=== PATIENT | female | born 1980 | race African-American/Black ===

== ENCOUNTER 2016-05-08 00:30 | Emergency (ER) | payer OTHER ==
[~2016-05-08] VITALS: Ht 167.6 cm; Wt 89.4 kg
[~2016-05-08 00:30] MED LIST: AZITHROMYCIN250 MG ORAL; BACTRIM DOUBLE S1 E1 ORAL; BENADRYL25 MG ORAL; BENADRYL50 MG PO; CEPHALEXIN500 MG PO; COUMADIN5 MG ORAL; DILAUDID2 MG ORAL; DILAUDID2 MG PO; FERROUS SULFAT325 MG ORAL; FLOMAX0.4 MG ORAL; FLOMAX0.4 MG PO; GABAPENTIN300 MG PO; GLUCOPHAGE500 MG ORAL; HYDREA500 MG PO; KEFLEX500 MG ORAL; LANTUS SOL100 UNIT/1 SUBQ; LOVENOX10 M3 SUBQ; NEURONTIN300 MG PO; NOVOLOG100 UNIT/3 SUBQ; ONDANSETRON ODT4 MG ORAL; PHENERGAN25 M1 ORAL; ROBITUSSIN DM5 ML PO; XARELTO10 MG ORAL
--- NOTE | 2016-05-08 02:14 | Emergency Room Report ---
History of Present Illness General Chief Complaint: Pain Source: Patient Present Illness HPI Is a 35-year-old female who has a history of sickle cell. She is well-known to me. She presents with chief complaint of sickle cell pain. Pain is diffuse. 10 out of 10. It affected her back and legs. She said that she is out of her Dilaudid. She was seen at [facility] and had rectal prolapse surgery. She said that the doctor only gave her 2 weeks worth of pain medication. Now she is out. Denies any fever chills denies any nausea vomiting. Allergies: Coded Allergies: ASPIRIN (Verified Allergy, Severe, 09/19/15) EGG (Verified Allergy, Severe, Shortness of Breath, 09/19/15) PENICILLINS (Verified Allergy, Severe, RASH, 09/19/15) KETOROLAC TROMETHAMINE (Verified Allergy, Intermediate, Hives, 09/19/15) Uncoded Allergies: fish (Allergy, Unknown, 09/19/15) Patient History Past Medical History: see triage record, old chart reviewed, DM Past Surgical History: other Pertinent Family History: none Social History: Denies: smoking Last Menstrual Period: Apr Now: No Immunizations: other Reviewed Nursing Documentation: PMH: Agreed, PSxH: Agreed Nursing Documentation-PMH Hx Cardiac Problems: Yes - DVT right lung and left groin Hx Diabetes: Yes Hx Gastrointestinal Problems: Yes - Tubal Ligation,rectal prolapse surgery on Mar Hx Dialysis: No - kidney stones Review of Systems Eye: Denies: blurred vision, eye pain ENT: Denies: ear pain, nose congestion, throat swelling Respiratory: Denies: cough, shortness of breath Cardiovascular: Denies: chest pain, palpitations Gastrointestinal: Denies: abdominal pain, diarrhea, nausea, vomiting Musculoskeletal: Denies: back pain, joint pain Skin: Denies: rash Neurological: Denies: headache, numbness Endocrine: Denies: increased thirst, increased urine Hematologic/Lymphatic: Denies: easy bruising All Other Systems: negative except mentioned in HPI Physical Exam Vital Signs Date Time Temp Pulse Resp B/P Pulse Ox O2 Delivery O2 Flow Rate FiO2 05/08/16 00:33 98.1 118 16 120/84 100 Room Air vitals with tachycardia Sp02 EP Interpretation: reviewed, normal General Appearance: well appearing, no apparent distress, alert Head: normocephalic, atraumatic Eyes: bilateral eye EOMI, bilateral eye PERRL ENT: hearing grossly normal, normal pharynx Neck: full range of motion, supple, no meningismus Respiratory: chest non-tender, lungs clear, normal breath sounds Cardiovascular #1: regular rate, rhythm, no murmur Gastrointestinal: normal bowel sounds, non tender, no mass, no organomegaly, no bruit, non-distended Musculoskeletal: back normal, gait/station normal, normal range of motion Psychiatric: mood/affect normal Skin: warm/dry Medical Decision Making Diagnostic Impression: Primary Impression: Sickle cell crisis Additional Impressions: Opioid dependence narcotic seeking behavior ER Course Patient presents with sickle cell pain. She is very reluctant historian. She said that she had a lot a prescription from [facility]. When I looked her up under her name, there was no prescription since December of 2015. She finally said that she use the last name of [employer]. When I looked in the [facility] system under Kristal, she had 60 Dilaudid tablets fill on 04/25/2016. This was filled however at [facility] pharmacy. She also has multiple prescription fill at other pharmacies. This patient has repeatedly gave me false information on previous visits. I told patient that I will give her [place]. I would not refill her a lot of prescription. She can see her primary care for refills. I am uncomfortable prescribing narcotics to this patient since he goes to multiple hospitals. His this point, patient refused any blood work or any medication. She got up and walked out without any difficulty. Last Vital Signs Date Time Temp Pulse Resp B/P Pulse Ox O2 Delivery O2 Flow Rate FiO2 05/08/16 00:33 98.1 118 16 120/84 100 Room Air Status: unchanged Disposition: HOME, SELF-CARE Condition: Stable - [id number]* Referrals: [facility],REFERRING (PCP) MEENA KIM M.D. May 08, 2016 02:14
[2016-05-08 02:25] VITALS: BP 128/86
== END 2016-05-08 02:28 | disposition home or self-care (01) ==
LOC: EMR 00:53
DX: D57.00 Hb-SS disease with crisis, unspecified (principal); F11.20 Opioid dependence, uncomplicated; Z76.5 Malingerer [conscious simulation]; E11.9 Type 2 diabetes mellitus without complications; Z98.51 Tubal ligation status; Z86.718 Personal history of other venous thrombosis and embolism; Z88.6 Allergy status to analgesic agent; Z91.012 Allergy to eggs; Z88.0 Allergy status to penicillin; Z91.013 Allergy to seafood
CPT/HCPCS: 99282

== ENCOUNTER 2016-08-01 21:48 | Emergency (ER) | payer MEDICAID, OTHER ==
[~2016-08-01] VITALS: Ht 167.6 cm; Wt 81.6 kg
[2016-08-01 22:10] VITALS: BP 120/84
[2016-08-01] MEDS ORDERED: Morphine Sulfate 4mg/ml Inj IM ONE (22:30)
[2016-08-01 23:00] VITALS: BP 118/82
--- NOTE | 2016-08-02 05:34 | Emergency Room Report ---
History of Present Illness General Chief Complaint: Pain Source: Patient Present Illness HPI 35-year-old female presents to ED complaining of body pain x3 days. Patient has history of sickle cell disease. States she ran out of her pain medication. Pain is throbbing, 10 out of 10, nonradiating. No other aggravating relieving factors. Denies chest pain or shortness of breath. Denies fevers or chills. Denies nausea or vomiting. Patient is well-[place] to [facility] [place] been here multiple times for similar presentation. Denies any other associated symptoms Allergies: Coded Allergies: ASPIRIN (Verified Allergy, Severe, 08/01/16) EGG (Verified Allergy, Severe, Shortness of Breath, 08/01/16) PENICILLINS (Verified Allergy, Severe, RASH, 08/01/16) KETOROLAC TROMETHAMINE (Verified Allergy, Intermediate, Hives, 08/01/16) [place] (Verified Allergy, Unknown, 08/01/16) Uncoded Allergies: fish (Allergy, Unknown, 09/19/15) Patient History Past Medical History: DM, other - sickle cell Past Surgical History: marva Pertinent Family History: none Social History: Denies: alcohol use, drug use, smoking Last Menstrual Period: this week Now: No Immunizations: UTD Reviewed Nursing Documentation: PMH: Agreed, PSxH: Agreed Nursing Documentation-PMH Hx Cardiac Problems: Yes - DVT right lung and left groin Hx Diabetes: Yes Hx Gastrointestinal Problems: Yes - Tubal Ligation,rectal prolapse surgery on Mar, gallbladder removed Hx Dialysis: No - kidney stones Review of Systems All Other Systems: negative except mentioned in HPI Physical Exam Vital Signs Date Time Temp Pulse Resp B/P Pulse Ox O2 Delivery O2 Flow Rate FiO2 08/01/16 21:59 98.1 106 16 122/83 100 Room Air Sp02 EP Interpretation: reviewed, normal General Appearance: no apparent distress, alert, GCS 15, non-toxic Head: normocephalic, atraumatic Eyes: bilateral eye PERRL, bilateral eye normal inspection ENT: hearing grossly normal, normal pharynx, no angioedema, normal voice Neck: full range of motion, supple/symm/no masses Respiratory: chest non-tender, lungs clear, normal breath sounds, speaking full sentences Cardiovascular #1: regular rate, rhythm, no edema Cardiovascular #2: 2+ carotid (R), 2+ carotid (L), 2+ radial (R), 2+ radial (L) , 2+ dorsalis pedis (R), 2+ dorsalis pedis (L) Gastrointestinal: normal bowel sounds, non tender, soft, non-distended, no guarding, no rebound Rectal: deferred Genitourinary: normal inspection, no CVA tenderness Musculoskeletal: back normal, gait/station normal, normal range of motion, non- tender Neurologic: alert, oriented x3, responsive, motor strength/tone normal, sensory intact, speech normal Psychiatric: judgement/insight normal, memory normal, mood/affect normal, no suicidal/homicidal ideation Reflexes: 3+ bicep (R), 3+ bicep (L), 3+ tricep (R), 3+ tricep (L), 3+ knee (R) , 3+ knee (L) Skin: normal color, no rash, warm/dry, well hydrated Lymphatic: no adenopathy Medical Decision Making Diagnostic Impression: Primary Impression: Sickle cell anemia Qualified Codes: D57.00 - Hb-SS disease with crisis, unspecified Additional Impression: Opioid dependence ER Course Hospital Course 35-year-old F presents ED complaining of generalized body pain, h/o sickle cell Differential diagnoses include: ME/unstable angina, sickle cell crisis, sepsis, UTI, pneumonia Clinical course Patient placed on stretcher. on estimate clerk. she reports has very poor IV access. Does not want blood drawn or IV access. Upon reviewed EMR she has been here multiple times in the past with similar presentation. Always refuses IV access and blood draw. Patient is aware that she will not receive any prescriptions for pain. I will agree to provide her with one dose of pain medication here Given morphine IM Diagnosis - sickle cell crisis, opioid dependence Stable and discharged to home. Followup with PMD. Return to ED if symptoms recur or worsen Last Vital Signs Date Time Temp Pulse Resp B/P Pulse Ox O2 Delivery O2 Flow Rate FiO2 08/01/16 23:00 98.4 74 17 118/82 100 Room Air Status: improved Disposition: HOME, SELF-CARE Condition: Stable Referrals: NOT CHOSEN [facility]/,REFERRING (PCP) Patient Instructions: Sickle Cell Anemia, Adult, [id number] ELAN PALMER M.D. August 02, 2016 05:34
== END 2016-08-01 23:00 | disposition home or self-care (01) ==
LOC: EMR 22:17
DX: D57.00 Hb-SS disease with crisis, unspecified (principal); F11.20 Opioid dependence, uncomplicated; Z90.49 Acquired absence of other specified parts of digestive tract; E11.9 Type 2 diabetes mellitus without complications; Z88.6 Allergy status to analgesic agent; Z91.012 Allergy to eggs; Z88.0 Allergy status to penicillin; Z91.018 Allergy to other foods; Z91.013 Allergy to seafood; Z86.718 Personal history of other venous thrombosis and embolism; Z87.442 Personal history of urinary calculi
CPT/HCPCS: 96372; 99283; J2270

== ENCOUNTER 2017-08-18 00:25 | Emergency (ER) | payer MEDICAID ==
[~2017-08-18] VITALS: Ht 167.6 cm; Wt 81.6 kg
[2017-08-18 00:29] VITALS: BP 116/74
[2017-08-18] MEDS ORDERED: Morphine Sulfate 10mg/ml Inj IM ONE (01:00)
[2017-08-18 02:03] VITALS: BP 116/74
--- NOTE | 2017-08-18 02:52 | Emergency Room Report ---
History of Present Illness General Chief Complaint: Pain Source: Patient Present Illness HPI Patient is a 36-year-old female presented after increased low back pain. Patient had prior history of sickle cell disease. Patient reports having run out of her medications approximately 1 day prior to arrival. Patient previous to been taking Dilaudid pills. The patient states that she had recently had her blood count checked and was noted to have a hemoglobin greater than 8. Patient states that she had been unable to fill her medications and has adequate prescriptions previously. The patient denies any vomiting. She denies any diarrhea. She denies any dysuria or being . Allergies: Coded Allergies: ASPIRIN (Verified Allergy, Severe, 08/01/16) EGG (Verified Allergy, Severe, Shortness of Breath, 08/01/16) PENICILLINS (Verified Allergy, Severe, RASH, 08/01/16) KETOROLAC TROMETHAMINE (Verified Allergy, Intermediate, Hives, 08/01/16) [place] (Verified Allergy, Unknown, 08/01/16) Uncoded Allergies: fish (Allergy, Unknown, 09/19/15) Patient History Past Medical History: see triage record Last Menstrual Period: August 2004 Now: No Reviewed Nursing Documentation: PMH: Agreed; PSxH: Agreed Nursing Documentation-PMH Hx Cardiac Problems: Yes - DVT right leg and left groin Hx Diabetes: Yes Hx Gastrointestinal Problems: Yes - Tubal Ligation,rectal prolapse surgery on Mar, gallbladder removed Hx Dialysis: No - kidney stones Review of Systems All Other Systems: negative except mentioned in HPI Physical Exam Vital Signs Date Time Temp Pulse Resp B/P (MAP) Pulse Ox O2 Delivery O2 Flow Rate FiO2 08/18/17 00:29 97.7 103 18 116/74 99 Room Air 97.7 General Appearance: well appearing, no apparent distress, alert, GCS 15 Head: normocephalic, atraumatic ENT: hearing grossly normal, normal voice Neck: full range of motion, supple Respiratory: no respiratory distress, speaking full sentences Cardiovascular #1: normal peripheral pulses, regular rate, rhythm, no edema Gastrointestinal: normal inspection, soft Musculoskeletal: normal inspection, back normal, no calf tenderness Neurologic: normal inspection, alert, oriented x3, responsive, 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 Differential diagnosis included but was not limited to have sickle cell pain crisis, aplastic crisis, sequestration , osteomyelitis, acute chest syndrome among others. Patient has a benign exam and does not appear to require any further imaging or laboratory testing at this time. The given the patient had recent laboratory testing and does not have any changes in her symptoms I do not feel that laboratory testing is indicated at this time. The patient was given pain medications. The patient's symptoms are likely due to medication withdrawal. Patient was given IM morphine for pain. The patient is advised to follow-up with her pharmacy to fill her medications. The patient is advised to return for any worsening of condition. Last Vital Signs Date Time Temp Pulse Resp B/P (MAP) Pulse Ox O2 Delivery O2 Flow Rate FiO2 08/18/17 02:03 97.7 18 116/74 99 Room Air 97.7 08/18/17 00:29 103 Status: improved Disposition: HOME, SELF-CARE Condition: Stable Referrals: [facility],REFERRING (PCP) Patient Instructions: Sickle Cell Anemia, Adult Roberto Portillo MD Aug 18, 2017 02:52
== END 2017-08-18 03:00 | disposition home or self-care (01) ==
LOC: EMR 00:45
DX: D57.1 Sickle-cell disease without crisis (principal); E11.9 Type 2 diabetes mellitus without complications; Z98.51 Tubal ligation status; Z90.49 Acquired absence of other specified parts of digestive tract; Z86.718 Personal history of other venous thrombosis and embolism; Z88.6 Allergy status to analgesic agent; Z91.012 Allergy to eggs; Z88.0 Allergy status to penicillin; Z91.013 Allergy to seafood; Z91.018 Allergy to other foods
CPT/HCPCS: 96372; 99283; J2270

== ENCOUNTER 2017-10-29 17:52 | Emergency (ER) | payer MEDICAID ==
[~2017-10-29] VITALS: Ht 167.6 cm; Wt 81.6 kg
[2017-10-29 18:13] VITALS: BP 116/69
[2017-10-29] MEDS ORDERED: DiphenhydrAMINE 25mg/10ml Elixir ORAL ONE (18:45)
[2017-10-29] MEDS ORDERED: Morphine Sulfate 2mg/ml Inj(IV/IM USE ONLY) IM ONE (18:45)
[2017-10-29 19:37] VITALS: BP 119/72
--- NOTE | 2017-10-29 19:38 | Emergency Room Report ---
History of Present Illness General Chief Complaint: Pain Source: Patient, Medical Record Present Illness HPI Patient is a 36 female presented after increased generalized extremity pain. Patient prior history of sickle cell disease. She reportedly had been having difficulty with filling her medications. Patient chronically been taking hydroxyurea as well as other pain medications. She reports having a recent blood draw with adequate hemoglobin. She had not been having any vomiting or fever. She denied any severe shortness of breath. Patient reports having increased pain to her lower extremities. She reports as being typical for sickle cell pain.The patient reports having a prior cholecystectomy. She denies other abdominal surgeries. Allergies: Coded Allergies: ASPIRIN (Verified Allergy, Severe, 08/01/16) EGG (Verified Allergy, Severe, Shortness of Breath, 08/01/16) PENICILLINS (Verified Allergy, Severe, RASH, 08/01/16) KETOROLAC TROMETHAMINE (Verified Allergy, Intermediate, Hives, 08/01/16) [place] (Verified Allergy, Unknown, 08/01/16) Uncoded Allergies: fish (Allergy, Unknown, 09/19/15) Patient History Past Medical History: see triage record Last Menstrual Period: 08/29/2004 Reviewed Nursing Documentation: PMH: Agreed; PSxH: Agreed Nursing Documentation-PMH Past Medical History: No History, Except For Hx Cardiac Problems: Yes - DVT right leg and left groin Hx Diabetes: Yes Hx Gastrointestinal Problems: Yes - Tubal Ligation,rectal prolapse surgery on Mar, gallbladder removed Hx Dialysis: No - kidney stones Review of Systems All Other Systems: negative except mentioned in HPI Physical Exam Vital Signs Date Time Temp Pulse Resp B/P (MAP) Pulse Ox O2 Delivery O2 Flow Rate FiO2 10/29/17 17:57 98.6 114 18 116/69 99 Room Air 98.6 Sp02 EP Interpretation: reviewed, normal General Appearance: normal inspection, well appearing, no apparent distress, alert, GCS 15 Head: atraumatic ENT: normal ENT inspection, hearing grossly normal, normal voice Neck: normal inspection, full range of motion, supple, no bony tend Respiratory: normal inspection, lungs clear, normal breath sounds, no respiratory distress, no retraction, no wheezing Cardiovascular #1: regular rate, rhythm, no edema Gastrointestinal: normal inspection, normal bowel sounds, non tender, soft, no guarding, no hernia Genitourinary: no CVA tenderness Musculoskeletal: normal inspection, back normal, normal range of motion Neurologic: normal inspection, alert, oriented x3, responsive, 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 Differential diagnosis included but was not limited to have sickle cell pain crisis, aplastic crisis, sequestration , osteomyelitis, acute chest syndrome among others. Patient has a benign exam and does not appear to require any further imaging or laboratory testing at this time. The patient was given pain medications for symptomatic treatment.The patient is advised to follow up with primary care doctor in 1-2 days. Patient is advised to return if any worsening condition or if any changes in status that are concerning. This report is dictated with [employer] financial professional software which may occasionally lead to discrepancies related to use of this software. Last Vital Signs Date Time Temp Pulse Resp B/P (MAP) Pulse Ox O2 Delivery O2 Flow Rate FiO2 10/29/17 18:56 98.6 10/29/17 18:13 114 18 116/69 99 Room Air Status: improved Disposition: HOME, SELF-CARE Condition: Stable Referrals: NOT CHOSEN [facility]/,REFERRING (PCP) Patient Instructions: Sickle Cell Anemia, Adult Roberto Portillo MD Oct 29, 2017 19:38
[2017-10-29 20:30] VITALS: BP 119/72
== END 2017-10-29 20:35 | disposition home or self-care (01) ==
LOC: EMR 18:21
DX: D57.1 Sickle-cell disease without crisis (principal); F11.20 Opioid dependence, uncomplicated; E11.9 Type 2 diabetes mellitus without complications; Z88.6 Allergy status to analgesic agent; Z91.012 Allergy to eggs; Z91.018 Allergy to other foods; Z88.8 Allergy status to other drugs, medicaments and biological substances; Z86.718 Personal history of other venous thrombosis and embolism; Z90.6 Acquired absence of other parts of urinary tract
CPT/HCPCS: 96372; 99283; J2270

== ENCOUNTER 2017-12-29 05:47 | Emergency (ER) | payer MEDICAID ==
[~2017-12-29] VITALS: Ht 167.6 cm; Wt 81.6 kg
[2017-12-29 06:00] VITALS: BP 120/80
[2017-12-29] MEDS ORDERED: Morphine Sulfate 4mg/ml Inj (IV/IM USE ONLY) IM ONE (06:30)
--- NOTE | 2017-12-29 06:40 | Emergency Room Report ---
History of Present Illness General Chief Complaint: Pain Source: Patient Present Illness HPI Is a 37-year-old female well-known to me. She has been here numerous times in the past but not recently. She has a history of sickle cell anemia and said that she is out of her pain medication. She is blamed this on insurance change with her name. Patient gets with chief complaint of body pain secondary to sickle cell. Onset the last couple days. No fever chills but no nausea no vomiting. No trauma. Denies any other complaint. Pain is 10 out of 10. Similar symptom in the past. Allergies: Coded Allergies: ASPIRIN (Verified Allergy, Severe, 08/01/16) EGG (Verified Allergy, Severe, Shortness of Breath, 08/01/16) PENICILLINS (Verified Allergy, Severe, RASH, 08/01/16) KETOROLAC TROMETHAMINE (Verified Allergy, Intermediate, Hives, 08/01/16) [place] (Verified Allergy, Unknown, 08/01/16) Uncoded Allergies: fish (Allergy, Unknown, 09/19/15) Patient History Past Medical History: see triage record, old chart reviewed Past Surgical History: other Pertinent Family History: none Social History: Denies: smoking Now: No Immunizations: other Reviewed Nursing Documentation: PMH: Agreed; PSxH: Agreed Nursing Documentation-PMH Hx Cardiac Problems: Yes - DVT right leg and left groin Hx Diabetes: Yes Hx Gastrointestinal Problems: Yes - Tubal Ligation,rectal prolapse surgery on Mar, gallbladder removed Hx Dialysis: No - kidney stones Review of Systems Eye: Denies: eye pain, blurred vision ENT: Denies: ear pain, nose congestion, throat swelling Respiratory: Denies: cough, shortness of breath Cardiovascular: Denies: chest pain, palpitations Gastrointestinal: Denies: abdominal pain, diarrhea, nausea, vomiting Musculoskeletal: Reports: back pain, joint pain Skin: Denies: rash Neurological: Denies: headache, numbness Endocrine: Denies: increased thirst, increased urine Hematologic/Lymphatic: Denies: easy bruising All Other Systems: negative except mentioned in HPI Physical Exam Vital Signs Date Time Temp Pulse Resp B/P (MAP) Pulse Ox O2 Delivery O2 Flow Rate FiO2 12/29/17 05:57 98.8 84 18 120/80 98 Room Air 98.8 vitals normal Sp02 EP Interpretation: reviewed, normal General Appearance: well appearing, no apparent distress, alert Head: normocephalic, atraumatic Eyes: bilateral eye PERRL, bilateral eye EOMI ENT: hearing grossly normal, normal pharynx Neck: full range of motion, supple, no meningismus Respiratory: chest non-tender, lungs clear, normal breath sounds Cardiovascular #1: regular rate, rhythm, no murmur Gastrointestinal: normal bowel sounds, non tender, no mass, no organomegaly, no bruit, non-distended Musculoskeletal: back normal, gait/station normal, normal range of motion Psychiatric: mood/affect normal Skin: warm/dry Medical Decision Making Diagnostic Impression: Primary Impression: Sickle cell crisis Additional Impression: Opioid dependence ER Course Patient presents with sickle cell crisis. I suspect there is a large narcotic seeking/drug-seeking behavior. She had to be false information multiple times in the past. I told patient I would not refill narcotic prescription. We'll give her a dose of morphine here. I see no need for further workup. She has been to multiple different hospitals for pain medication. She was at [facility] recently and [facility] last month. Last Vital Signs Date Time Temp Pulse Resp B/P (MAP) Pulse Ox O2 Delivery O2 Flow Rate FiO2 12/29/17 06:00 98.8 18 120/80 98 Room Air 98.8 12/29/17 05:57 84 Status: improved Disposition: HOME, SELF-CARE Condition: Stable Referrals: NOT CHOSEN [facility]/,REFERRING (PCP) Additional Instructions: Follow-up with your doctor in 2-3 days. Stop go to different hospitals for your sickle cell. Return if symptom worsen. Nino Hernandez MD Dec 29, 2017 06:40
[2017-12-29 06:48] VITALS: BP 132/68
== END 2017-12-29 06:47 | disposition home or self-care (01) ==
LOC: EMR 06:18
DX: D57.00 Hb-SS disease with crisis, unspecified (principal); F11.20 Opioid dependence, uncomplicated; E11.9 Type 2 diabetes mellitus without complications; Z86.718 Personal history of other venous thrombosis and embolism; Z88.6 Allergy status to analgesic agent; Z88.0 Allergy status to penicillin; Z88.8 Allergy status to other drugs, medicaments and biological substances; Z91.012 Allergy to eggs
CPT/HCPCS: 96372; 99283; J2270

== ENCOUNTER 2018-06-11 07:24 | Emergency (ER) | payer MEDICAID ==
[~2018-06-11] VITALS: Ht 167.6 cm; Wt 81.6 kg
[2018-06-11] MEDS ORDERED: XARELTO2.5 MG PO (07:35)
[2018-06-11] MEDS ORDERED: HYDROMORPHONE ER8 MG PO (07:35)
--- NOTE | 2018-06-11 07:38 | NUR ---
ED Nurse Note: patient walked into ED from home c/o body aches 9/, patient report history of sickle cell crisis. patient is alert/oriented x4, ambulatory steady gait.
[2018-06-11] MEDS ORDERED: Morphine Sulfate 2mg/ml Inj(IV/IM USE ONLY) IM ONE ×2 (07:45→09:45)
--- NOTE | 2018-06-11 07:46 | Emergency Room Report ---
History of Present Illness General Chief Complaint: Pain Source: Patient Present Illness HPI Patient is a 37-year-old female presented after increased pain to her lower extremities as well as her low back. Patient prior history of sickle cell disease. Patient had multiple prior visits for similar symptoms in the past. Patient states this is her usual location of pain. She states she is not been able to fill her medications for pain and will be able to fill them this afternoon. She denies any fever. She had not been having any vomiting. She denies any chest discomfort. She states she has been taking hydroxyurea and has had recently had her blood counts checked with a hemoglobin approximately 8. Allergies: Coded Allergies: ASPIRIN (Verified Allergy, Severe, 06/11/18) EGG (Verified Allergy, Severe, Shortness of Breath, 06/11/18) PENICILLINS (Verified Allergy, Severe, RASH, 06/11/18) KETOROLAC TROMETHAMINE (Verified Allergy, Intermediate, Hives, 06/11/18) [place] (Verified Allergy, Unknown, 06/11/18) Uncoded Allergies: fish (Allergy, Unknown, 09/19/15) Patient History Past Medical History: see triage record Last Menstrual Period: August, Reviewed Nursing Documentation: PMH: Agreed; PSxH: Agreed Nursing Documentation-PMH Past Medical History: No History, Except For Hx Cardiac Problems: Yes - DVT right leg and left groin Hx Diabetes: Yes Hx Gastrointestinal Problems: Yes - Tubal Ligation,rectal prolapse surgery on Mar, gallbladder removed Hx Dialysis: No - kidney stones Review of Systems All Other Systems: negative except mentioned in HPI Physical Exam Vital Signs Date Time Temp Pulse Resp B/P (MAP) Pulse Ox O2 Delivery O2 Flow Rate FiO2 06/11/18 07:30 98.8 117 15 115/81 100 Room Air Sp02 EP Interpretation: reviewed, normal General Appearance: normal inspection, well appearing, no apparent distress, alert, GCS 15 Head: atraumatic ENT: normal ENT inspection, hearing grossly normal, normal voice Neck: normal inspection, full range of motion, supple, no bony tend Respiratory: normal inspection, lungs clear, normal breath sounds, no respiratory distress, no retraction, no wheezing Cardiovascular #1: regular rate, rhythm, no edema Gastrointestinal: normal inspection, normal bowel sounds, non tender, soft, no guarding, no hernia Genitourinary: no CVA tenderness Musculoskeletal: normal inspection, back normal, normal range of motion Neurologic: normal inspection, alert, oriented x3, responsive, speech normal Psychiatric: normal inspection, judgement/insight normal, mood/affect normal Skin: normal inspection, normal color, no rash Medical Decision Making Diagnostic Impression: Primary Impression: Sickle cell anemia Additional Impression: opiate dependance ER Course Patient presented for sickle cell pain. Patient reports having recently had blood draw which showed normal blood counts. Patient does not appear to have any acute changes in her pain or concerning signs or symptoms. Patient was given medications for pain control due to inability to fill her medications. Patient was advised to subsequently patient was advised to follow-up with her primary pharmacy for medication refills and to return if she had any worsening pain, shortness of breath or other concerns.. Last Vital Signs Date Time Temp Pulse Resp B/P (MAP) Pulse Ox O2 Delivery O2 Flow Rate FiO2 06/11/18 07:30 98.8 117 15 115/81 100 Room Air Status: improved Disposition: HOME, SELF-CARE Condition: Stable Referrals: NOT CHOSEN [facility]/,REFERRING (PCP) Roberto Portillo MD Jun 11, 2018 07:45
--- NOTE | 2018-06-11 08:19 | NUR ---
ED Nurse Note: notified Dr. Portillo unable to get an IV access. Dr. Portillo ok for pt with no IV access called lab and spoke with Desi, someone from the lab will be here shortly.
--- NOTE | 2018-06-11 09:04 | NUR ---
ED Nurse Note: notified Dr Bandar Fields/Desi unable to draw blood from the patient.
--- NOTE | 2018-06-11 09:50 | NUR ---
ED Nurse Note: unable to draw blood, 2 nurses tried, museum guide tried. now patient is refusing for lab draw. Dr. Ricks made aware.
[2018-06-11 09:51] VITALS: BP 112/82
--- NOTE | 2018-06-11 09:59 | NUR ---
ER DISCHARGE NOTE: Patient is cleared to be discharged per ERMD, pt is aox4, on room air, with stable vital signs. pt was given dc and prescription instructions, pt was able to verbalize understanding, pt id band and iv site removed without complications. pt is able to ambulate with steady gait. pt took all belongings. DR. Portillo ok to discharge patient right after 4mg IM morphine given.
[2018-06-11 10:18] VITALS: BP 112/82
== END 2018-06-11 09:59 | disposition home or self-care (01) ==
LOC: EMR 07:44
DX: D57.1 Sickle-cell disease without crisis (principal); F11.20 Opioid dependence, uncomplicated; E11.9 Type 2 diabetes mellitus without complications; Z86.718 Personal history of other venous thrombosis and embolism; Z88.6 Allergy status to analgesic agent; Z91.012 Allergy to eggs; Z88.0 Allergy status to penicillin; Z91.018 Allergy to other foods
CPT/HCPCS: 96372; 99284; J2270